=== PATIENT | male | born 1980 | race African-American/Black ===

== ENCOUNTER 2024-07-30 11:47 | Emergency (ER) | payer SELFPAY ==
[2024-07-30 11:58] VITALS: BP 131/90
[2024-07-30 11:59] LABS: Glucose - Point of Care 464 mg/dl (70-99)
[2024-07-30 12:45] LABS: % Basophils 1.2 % (0-2); % Eosinophils 7.6 % (0-6); % Immature Granulocytes 0.3 % (0-0.5); % Lymphocytes 29.4 % (20.5-51.1); % Monocytes 8.5 % (1.7-9.3); Absolute Basophils 0.1 10^3/uL (0-0.2); Absolute Eosinophils 0.6 10^3/uL (0-0.7); Absolute Lymphocytes 2.2 10^3/uL (1.2-3.4); Absolute Monocytes 0.6 10^3/uL (0.1-0.6); Absolute Neutrophils 3.9 10^3/uL (1.4-6.5); Hematocrit 44.2 % (39.0-52.0); Hemoglobin 15.3 g/dL (13.0-18.0); Mean Corp Hgb Conc. 34.6 g/dL (33.0-37.0); Mean Corpuscular Hgb 28.5 pg (27.0-31.0); Mean Corpuscular Volume 82.5 fL (80.0-94.0); Mean Platelet Volume 11.9 fL (7.4-10.4); Nucleated Red Blood Cells % 0 % (-); Platelet Count 209 10^3/uL (130-400); Red Blood Cell Count 5.36 10^6/uL (4.70-6.10); Red Cell Dist. Width 12.1 % (11.5-14.5); White Blood Cell Count 7.4 10^3/uL (4.8-10.8)
[2024-07-30 12:48] LABS: Urine Albumin Negative (Neg - Trace); Urine Bilirubin Negative (Negative); Urine Character Clear (Clear); Urine Glucose 4+ (Negative); Urine Ketone Negative (Negative); Urine Leukocyte Negative (Negative); Urine Nitrite Negative (Negative); Urine Occult Blood Negative (Negative); Urine Urobilinogen Negative (Neg - 1+)
[2024-07-30 12:49] LABS: Urine Color Straw
[2024-07-30 13:08] LABS: ALT (SGPT) 28 U/L (0-50); AST (SGOT) 23 U/L (17-59); Albumin 5.4 g/dl (3.5-5.0); Alkaline Phosphatase 117 U/L (38-126); Blood Urea Nitrogen 15 mg/dl (9-20); Calcium 9.8 mg/dl (8.4-10.2); Carbon Dioxide 30 mmol/L (22-30); Chloride 86 mmol/L (98-107); Glucose 473 mg/dl (70-99); Potassium 4.3 mmol/L (3.5-5.1); Sodium 127 mmol/L (135-145); Total Bilirubin 0.7 mg/dl (0.2-1.3); Total Protein 8.1 g/dl (6.3-8.2); eGFR > 60.00
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
[2024-07-30] MEDS: NSS 1000 IV (15:53)
[2024-07-30 15:56] VITALS: BP 111/61
[2024-07-30 16:17] LABS: Glucose - Point of Care 246 mg/dl (70-99)
[2024-07-30] MEDS: NOVOLOG vial 2 UNITS SC (16:26)
--- NOTE | 2024-07-30 16:26 | CM ---
CM following re: discharge planning.
CM consulted due to pt cannot afford to pay forinsulin
Reviewed pt's chart, met with pt.
Pt is a 43 year oild male, arrived to with primary dx of high Blood sugar.
Pt reports he lives with parents, has no children. pt reports he is independent in all areas [employer].
Pt reports he has no insurance, applied for [employer] insurance and awaiting for approval. pt reports he can't afford to pay for insulin. CM provided pt with information regarding medication discount programs at [facility] and pt stated he and his parents
will afford temporarily to pay till insurance kick in.
is aware. '
D/C plan: home with parents and to get affordable insulin maloney at [facility] pharmacy. Parents to transport.
[2024-07-30 16:31] LABS: COVID-19 Antigen Negative (Negative)
[2024-07-30 17:00] VITALS: BP 105/74
[2024-07-30 17:14] LABS: Glucose - Point of Care 279 mg/dl (70-99)
[2024-07-30] MEDS: NSS 500 IV (17:17)
[2024-07-30 17:54] LABS: Glucose - Point of Care 348 mg/dl (70-99)
[2024-07-30] MEDS: NOVOLOG vial 4 UNITS SC (18:15)
[2024-07-30 19:27] LABS: Glucose - Point of Care 265 mg/dl (70-99)
== END 2024-07-30 19:51 | disposition home or self-care (01) ==
LOC: EMR 11:47
PROVIDERS: Emergency Medicine; Physician Assistant; EMERGENCY PHYSICIAN Student in an Organized Health Care Education/Training Program; FAMILY PHYSICIAN Family Medicine
DX: E11.65 Type 2 diabetes mellitus with hyperglycemia (principal); Z79.4 Long term (current) use of insulin; Z91.141 Patient's other noncompliance with medication regimen due to financial hardship
CPT/HCPCS: 96372; 96360; 99284; 71046; 80053; 81003; 82962; 85025; 87502; 87811